=== PATIENT | male | born 1985 | race Caucasian/White ===

== ENCOUNTER 2016-12-23 16:24 | Emergency (ER) | payer OTHER ==
--- NOTE | 2016-12-23 18:01 | ED ---
General Adult HPI - General Chief complaint: Abdominal Pain Stated complaint: Poss Hernia Rupture Time Seen by Provider: 12/23/16 17:52 Source: patient, RN notes reviewed Mode of arrival: ambulatory Limitations: no limitations - History of Present Illness Initial comments: 31-year-old male presents to the emergency department with a chief complaint of pain in the right groin area. Patient has a history of an inguinal hernia to the right groin. Patient states that he noticed about the area and pain when he walks so he was concerned. Patient states that there has been no nausea vomiting fever or chills. Patient states that he just noted tenderness and swelling of the area. Patient states that he has no other complaints at this time. Patient states he does appear to be saw that it was yesterday. Patient denies any recent fever, chills, shortness of breath, chest pain, back pain, abdominal pain, nausea vomiting, numbness or tingling, dysuria or hematuria, constipation or diarrhea, headaches or visual changes, or any other current symptoms. - Related Data Previous Rx's Medication Instructions Recorded Amoxicillin/Potassium Clav 1 tab PO Q12HR #20 tab 12/23/16 [Augmentin 875-125 Tablet] Allergies Allergy/AdvReac Type Severity Reaction Status Date / Time No Known Allergies Allergy Verified 12/23/16 19:09 Review of Systems ROS Statement: Those systems with pertinent positive or pertinent negative responses have been documented in the HPI. ROS Other: All systems not noted in ROS Statement are negative. Past Medical History Past Medical History: No Reported History History of Any Multi-Drug Resistant Organisms: None Reported Past Surgical History: Hernia Repair, Orthopedic Surgery Additional Past Surgical History / Comment(s): RIGHT WRIST Past Anesthesia/Blood Transfusion Reactions: No Reported Reaction Past Psychological History: No Psychological Hx Reported Smoking Status: Current every day smoker Past Alcohol Use History: Occasional Past Drug Use History: None Reported General Exam Limitations: no limitations General appearance: alert, in no apparent distress ENT exam: Present: normal exam, mucous membranes moist Neck exam: Present: normal inspection. Absent: tenderness, meningismus, lymphadenopathy Respiratory exam: Present: normal lung sounds bilaterally. Absent: respiratory distress, wheezes, rales, rhonchi, stridor Cardiovascular Exam: Present: regular rate, normal rhythm, normal heart sounds. Absent: systolic murmur, diastolic murmur, rubs, gallop, clicks GI/Abdominal exam: Present: soft, normal bowel sounds. Absent: distended, tenderness, guarding, rebound, rigid exam: Present: circumcision, other (tenderness with mobile nodule right groin ). Absent: testicular tenderness, urethral discharge, scrotal swelling Course Vital Signs 12/23/16 16:31 Temperature 97.4 F L Pulse Rate 93 Respiratory 16 Rate Blood Pressure 119/68 O2 Sat by Pulse 98 Oximetry Medical Decision Making - Medical Decision Making 31-year-old male presents for pain and nodule to the right groin area with concern for hernia.this time patient's exam and ultrasound does show the patient does have a swollen lymph node on the right. This time the right leg shows no sign of infection. Patient has no sign of infection to the scrotal area either. This time we will start the patient on Augmentin for the swollen lymph node. We did discuss that if this does not completely resolve he needs to follow-up with his doctor for evaluation possibly a biopsy of the area. We did discuss return parameters outpatient family's questions. They state Sivakumar they're in agreement plan. They'll be discharged. - Radiology Data Radiology results: report reviewed, image reviewed Disposition Clinical Impression: Lymphadenopathy, inguinal Disposition: HOME SELF-CARE Condition: Stable Instructions: Lymphadenopathy (ED) Additional Instructions: Please use medication as discussed. Please follow up with family doctor if symptoms have not improved over the next two days. Please return to the emergency room if your symptoms increase or worsen or for any other concerns. Prescriptions: Amoxicillin/Potassium Clav [Augmentin 875-125 Tablet] 1 tab PO Q12HR #20 tab Referrals: Marlin Whitehead MD [STAFF PHYSICIAN] - 1-2 days Time of Disposition: 19:26
--- NOTE | 2016-12-23 18:39 | US ---
EXAMINATION TYPE: US groin extremity RT DATE OF EXAM: 12/23/2016 COMPARISON: NONE CLINICAL HISTORY: Pain. Right groin pain Multiple lymph nodes visualized in right groin area. Largest measuring 4.0 x 1.2 x 3.7 cm. IMPRESSION: Multiple right inguinal lymph nodes are demonstrated that measure up to 4 cm in length. No evidence of an abscess.
--- NOTE | 2016-12-23 18:41 | US ---
EXAMINATION TYPE: US scrotum with doppler. Grayscale and color Doppler Duplex imaging performed of t martha scrotum. DATE OF EXAM: 12/23/2016 COMPARISON: NONE CLINICAL HISTORY: Pain. Right groin pain EXAM MEASUREMENTS: TESTICLES: Right Testicle: 3.5 x 1.7 x 2.7 cm Left Testicle: 3.3 x 1.9 x 2.6 cm EPIDIDYMIS HEAD: Right Epididymis: 0.6 x 0.6 x 0.9 cm Left Epididymis: 0.7 x 0.9 x 1.0 cm Doppler performed to assess for testicular vascularity; good bilateral color flow and waveforms are s een. There is no evidence of testicular torsion. Presence of hydroceles: no Presence of varicoceles: no Bilateral normal color doppler flow. IMPRESSION: Normal exam. No evidence of testicular torsion or mass.
[2016-12-23 19:39] VITALS: BP 110/57; PULSE 81; RESP 17; TEMP 97.7
== END 2016-12-23 19:45 | disposition home or self-care (01) ==
LOC: EC 16:24
DX: R59.0 Localized enlarged lymph nodes (principal); F17.200 Nicotine dependence, unspecified, uncomplicated; Z87.19 Personal history of other diseases of the digestive system; Z98.890 Other specified postprocedural states
CPT/HCPCS: 76870; 93975; 99284

== ENCOUNTER 2017-06-19 08:24 | Emergency (ER) | payer OTHER ==
[2017-06-19 08:29] VITALS: BP 165/71; PULSE 78; RESP 18; TEMP 98.1
--- NOTE | 2017-06-19 08:43 | ED ---
General Adult HPI - General Chief complaint: Extremity Injury, Upper Stated complaint: RT WRIST PAIN Time Seen by Provider: 06/19/17 08:33 Source: patient, RN notes reviewed Mode of arrival: ambulatory Limitations: no limitations - History of Present Illness Initial comments: 31-year-old male presents for right wrist pain. He states he was at work and all of a sudden he just had a pain to his right wrist is now some swelling to the area. 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 He denies any other injury to it that he is aware of. He states it does hurt him on and off however chronically. He denies any weakness or numbness and tingling to the wrist. He denies any other symptoms at this time. Patient was concerned due to his continued pain in the small bump that he's noticed in the back of the wrist so he thought that he should be seen.Patient denies any recent fever, chills, shortness of breath, chest pain, back pain, abdominal pain, nausea vomiting, numbness or tingling, dysuria or hematuria, constipation or diarrhea, headaches or visual changes, or any other current symptoms. - Related Data Home Medications Medication Instructions Recorded Confirmed Ibuprofen [Motrin] 800 - 1,600 mg PO Q6H PRN 06/19/17 06/19/17 Previous Rx's Medication Instructions Recorded Ibuprofen [Motrin] 600 mg PO Q6HR PRN #20 tab 06/19/17 Allergies Allergy/AdvReac Type Severity Reaction Status Date / Time No Known Allergies Allergy Verified 06/19/17 08:59 Review of Systems ROS Statement: Those systems with pertinent positive or pertinent negative responses have been documented in the HPI. ROS Other: All systems not noted in ROS Statement are negative. Past Medical History Past Medical History: No Reported History History of Any Multi-Drug Resistant Organisms: None Reported Past Surgical History: Hernia Repair, Orthopedic Surgery Additional Past Surgical History / Comment(s): RIGHT WRIST Past Anesthesia/Blood Transfusion Reactions: No Reported Reaction Past Psychological History: No Psychological Hx Reported Smoking Status: Current every day smoker Past Alcohol Use History: Occasional Past Drug Use History: None Reported General Exam - General Exam Comments Initial Comments: General: The patient is awake and alert, in no distress, and does not appear acutely ill. Neck: The neck is supple, there is no tenderness or JVD. Cardiovascular: There is a regular rate and rhythm. No murmur, rub or gallop is appreciated. Respiratory: Lungs are clear to auscultation, respirations are non-labored, breath sounds are equal. No wheezes, stridor, rales, or rhonchi. Musculoskeletal: Sensation intact. 2+ pulses throughout the right upper extremity. Full range of motion of right elbow. Patient has pain with complete range of motion of right wrist. Tenderness to the medial aspect of the right wrist. No deformity. <2 capillary refill. Neurological: CN II-XII intact, There are no obvious motor or sensory deficits. Coordination appears grossly intact. Speech is normal. Skin: Skin is warm and dry and no rashes or lesions are noted. Psychiatric: Normal mood and affect. Limitations: no limitations Course Vital Signs 06/19/17 08:26 Temperature 98.1 F Pulse Rate 78 Respiratory 18 Rate Blood Pressure 165/71 O2 Sat by Pulse 99 Oximetry Medical Decision Making - Medical Decision Making 31-year-old male presents for right wrist pain. At this time x-rays reviewed that does show some soft tissue swelling to the right wrist. This time we discussed right wrist sprain. We discussed Motrin Tylenol and ice. We'll give her Motrin 600. We discussed return parameters and follow-up and all questions. Patient stated he understood and he is given this plan. He will be discharged. - Radiology Data Radiology results: report reviewed, image reviewed Disposition Clinical Impression: Right wrist sprain Disposition: HOME SELF-CARE Condition: Stable Instructions: Wrist Sprain (ED) Additional Instructions: Please use medication as discussed. Please follow up with family doctor if symptoms have not improved over the next two days. Please return to the emergency room if your symptoms increase or worsen or for any other concerns. Prescriptions: Ibuprofen [Motrin] 600 mg PO Q6HR PRN #20 tab PRN Reason: Pain Referrals: Blaine Licona MD [Medical Doctor] - 1-2 days Time of Disposition: 09:54
--- NOTE | 2017-06-19 09:47 | XR ---
EXAMINATION TYPE: XR wrist complete RT DATE OF EXAM: 06/19/2017 COMPARISON: Right hand 03/04/2011 HISTORY: Pain, history of scaphoid resection TECHNIQUE: 4 view right wrist FINDINGS: The distal scaphoid is been resected. Joint spaces are otherwise preserved. Acute fractures are not identified. Mild diffuse soft tissue swelling appears to be present. IMPRESSION: 1. Postsurgical changes at the scaphoid. 2. Mild diffuse soft tissue swelling. 3. Follow-up exams can be performed 7-10 days from acute trauma for continued pain.
== END 2017-06-19 10:06 | disposition home or self-care (01) ==
LOC: EC 08:24
DX: S63.501A Unspecified sprain of right wrist, initial encounter (principal); F17.200 Nicotine dependence, unspecified, uncomplicated; Z98.890 Other specified postprocedural states
CPT/HCPCS: 99283

== ENCOUNTER 2017-06-21 07:55 | Emergency (ER) | payer OTHER ==
[2017-06-21 08:00] VITALS: BP 143/77; PULSE 90; RESP 18; TEMP 98.1
--- NOTE | 2017-06-21 08:10 | ED ---
Upper Extremity HPI - General Chief Complaint: Extremity Injury, Upper Stated Complaint: Shoulder pain Time Seen by Provider: 06/21/17 08:01 Source: patient, RN notes reviewed, old records reviewed Mode of arrival: ambulatory Limitations: no limitations - History of Present Illness Initial Comments: This patient is a 31-year-old male presents or urgency department today chief complaint of right shoulder pain. Patient reports that yesterday he was at his son's [employer] practice, and was encouraging the kids to run harder play. Patient reports that he was running with the children, he slipped and fell and landed on his right shoulder. Patient reports that since then he has been having a difficult time with range of motion with the shoulder. He is right- handed. He is also seen a few days ago for right wrist pain and swelling. Patient states that he had x-rays on it and was told to wear her brace and follow-up with orthopedic. Patient reports that he has no pain with range of motion of the elbow. He states he can only lift the right shoulder to 90 flexion. Denies any numbness or tingling down the arm.Patient denies any recent fever, chills, shortness of breath, chest pain, back pain, abdominal pain , nausea vomiting, numbness or tingling, dysuria or hematuria, constipation or diarrhea, headaches or visual changes, or any other current symptoms - Related Data Home Medications Medication Instructions Recorded Confirmed Ibuprofen [Motrin] 800 - 1,600 mg PO Q6H PRN 06/19/17 06/19/17 Previous Rx's Medication Instructions Recorded Ibuprofen [Motrin] 600 mg PO Q6HR PRN #20 tab 06/19/17 Cyclobenzaprine [Flexeril] 10 mg PO TID #12 tab 06/21/17 Ibuprofen [Motrin] 600 mg PO Q6HR PRN #12 tab 06/21/17 Allergies Allergy/AdvReac Type Severity Reaction Status Date / Time No Known Allergies Allergy Verified 06/21/17 08:00 Review of Systems ROS Statement: Those systems with pertinent positive or pertinent negative responses have been documented in the HPI. ROS Other: All systems not noted in ROS Statement are negative. Past Medical History Past Medical History: No Reported History History of Any Multi-Drug Resistant Organisms: None Reported Past Surgical History: Hernia Repair, Orthopedic Surgery Additional Past Surgical History / Comment(s): RIGHT WRIST Past Anesthesia/Blood Transfusion Reactions: No Reported Reaction Past Psychological History: No Psychological Hx Reported Smoking Status: Current every day smoker Past Alcohol Use History: Occasional Past Drug Use History: None Reported General Exam - General Exam Comments Initial Comments: This patient is a well-appearing 31-year-old male. No acute distress. Limitations: no limitations General appearance: alert, in no apparent distress Head exam: Present: atraumatic, normocephalic, normal inspection Eye exam: Present: normal appearance, PERRL, EOMI. Absent: scleral icterus, conjunctival injection, periorbital swelling ENT exam: Present: normal exam, mucous membranes moist Neck exam: Present: normal inspection. Absent: tenderness, meningismus, lymphadenopathy Respiratory exam: Present: normal lung sounds bilaterally. Absent: respiratory distress, wheezes, rales, rhonchi, stridor Cardiovascular Exam: Present: regular rate, normal rhythm, normal heart sounds. Absent: systolic murmur, diastolic murmur, rubs, gallop, clicks Right Shoulder Exam: Present: normal inspection. Absent: full ROM (Patient is limited flexion and extension. Patient is only able to flex to 90.) Upper Arm exam: Present: normal inspection, full ROM Elbow exam: Present: normal inspection, full ROM Forearm Wrist exam: Present: normal inspection, full ROM Hand Wrist exam: Present: full ROM. Absent: normal inspection (Patient is some minor swelling noted to the wrist.), tenderness, swelling Neuro motor exam: Present: wrist extension intact, thumb opposition intact, thumb IP flexion intact, thumb adduction intact, fingers 2-5 abduction intact Vascular: Present: normal capillary refill Back exam: Present: normal inspection Neurological exam: Present: alert, oriented X3, CN II-XII intact Psychiatric exam: Present: normal affect, normal mood Course Vital Signs 06/21/17 07:59 Temperature 98.1 F Pulse Rate 90 Respiratory 18 Rate Blood Pressure 143/77 O2 Sat by Pulse 97 Oximetry Procedures - Orthopedic Splinting/Casting Injury #1 Side: right Upper Extremity Injury Location: shoulder Upper Extremity Immobilizer: sling/shoulder immobilizer Medical Decision Making - Medical Decision Making This patient is a 31-year-old male presents or urgency department today chief complaint of right shoulder pain. Patient reports that yesterday he was at his son's [employer] practice, and was encouraging the kids to run harder play. Patient reports that he was running with the children, he slipped and fell and landed on his right shoulder. Patient reports that since then he has been having a difficult time with range of motion with the shoulder. Patient is able to flex and abduct the shoulder to 90. He has no further range of motion of this at that time. At this time we will obtain x-rays. He has normal capillary refill and normal sensation. Patient's x-rays are negative for any acute fracture. At this time and discussed likely significant muscle strain, discussed concern for rotator cuff tear. At this time we'll put the patient a sling. Discussing needs to practice range of motion however, because he does not want to develop frozen shoulder syndrome. We'll discharge the patient with a temperature medication and muscle relaxer. Discussed following up with PCP and orthopedic. All questions were answered and return parameters were discussed. - Radiology Data Radiology results: report reviewed Is no acute fracture dislocation within the right shoulder. Some spurring of the before meals joint. Glenohumeral joint is maintained. Visualized ribs are intact and unremarkable. Disposition Clinical Impression: Injury of right rotator cuff, Strain of shoulder Disposition: HOME SELF-CARE Condition: Good Instructions: Rotator Cuff Injury (ED) Additional Instructions: Patient advised to use the sling however distal practice range of motion with the shoulder as he did not want to develop "first shoulder syndrome". Patient needs to take anti-inflammatory medicine, ice the shoulder. Follow-up with orthopedic if symptoms are continuing to persist or worsening within the next week. Prescriptions: Cyclobenzaprine [Flexeril] 10 mg PO TID #12 tab Ibuprofen [Motrin] 600 mg PO Q6HR PRN #12 tab PRN Reason: Pain Referrals: None,Stated [Primary Care Provider] - 1-2 days Raulito Hernandez MD [STAFF PHYSICIAN] - 1-2 days Time of Disposition: 08:28
--- NOTE | 2017-06-21 08:24 | XR ---
EXAMINATION TYPE: XR shoulder complete RT DATE OF EXAM: 06/21/2017 CLINICAL HISTORY: Fall injury with limited range of motion TECHNIQUE: Three views of the right shoulder are obtained. COMPARISON: None. FINDINGS: There is no acute fracture/dislocation evident in the right shoulder. There is some spurri ng at acromioclavicular joint. Glenohumeral joint is maintained. The visualized ribs are intact and u nremarkable. IMPRESSION: There is no acute fracture or dislocation in the right shoulder.
[2017-06-21] MEDS ORDERED: CYCLOBENZAPRINE 10MG STARTER 3 TAB BTL PO STA (08:29)
[2017-06-21] MEDS ORDERED: IBUPROFEN 600 MG STARTER PACK 4 TAB BTL PO STA (08:29)
== END 2017-06-21 08:37 | disposition home or self-care (01) ==
LOC: EC 07:55
DX: S46.011A Strain of muscle(s) and tendon(s) of the rotator cuff of right shoulder, initial encounter (principal); F17.200 Nicotine dependence, unspecified, uncomplicated; W01.0XXA Fall on same level from slipping, tripping and stumbling without subsequent striking against object, initial encounter; Y93.02 Activity, running
CPT/HCPCS: 99284

== ENCOUNTER 2020-11-03 16:57 | Emergency (ER) | payer OTHER ==
[2020-11-03 17:42] VITALS: BP 139/91; PULSE 77; RESP 18; TEMP 98.1
--- NOTE | 2020-11-03 19:02 | ED ---
General Adult HPI - General Chief complaint: Weakness Stated complaint: neuro issues Time Seen by Provider: 11/03/20 17:40 Source: patient Mode of arrival: wheelchair Limitations: physical limitation - History of Present Illness Initial comments: Patient eloped before he could be seen by myself for evaluation - Related Data Home Medications Medication Instructions Recorded Confirmed Ibuprofen [Motrin] 800 - 1,600 mg PO Q6H PRN 06/19/17 06/19/17 Previous Rx's Medication Instructions Recorded Ibuprofen [Motrin] 600 mg PO Q6HR PRN #20 tab 06/19/17 Cyclobenzaprine [Flexeril] 10 mg PO TID #12 tab 06/21/17 Ibuprofen [Motrin] 600 mg PO Q6HR PRN #12 tab 06/21/17 Allergies Allergy/AdvReac Type Severity Reaction Status Date / Time No Known Allergies Allergy Verified 06/21/17 08:00 Review of Systems ROS Statement: Those systems with pertinent positive or pertinent negative responses have been documented in the HPI. ROS Other: All systems not noted in ROS Statement are negative. Past Medical History Past Medical History: No Reported History History of Any Multi-Drug Resistant Organisms: None Reported Past Surgical History: Hernia Repair, Orthopedic Surgery Additional Past Surgical History / Comment(s): RIGHT WRIST Past Anesthesia/Blood Transfusion Reactions: No Reported Reaction Past Psychological History: No Psychological Hx Reported Smoking Status: Current every day smoker Past Alcohol Use History: Daily Past Drug Use History: None Reported General Exam Limitations: physical limitation Course Vital Signs 11/03/20 17:38 Temperature 98.1 F Pulse Rate 77 Respiratory 18 Rate Blood Pressure 139/91 O2 Sat by Pulse 97 Oximetry Disposition Clinical Impression: Weak Disposition: Left W/O Being Seen by Phys Referrals: None,Stated [Primary Care Provider] - 1-2 days
== END 2020-11-03 18:54 | disposition left against medical advice (07) ==
LOC: EC 16:57
DX: R53.1 Weakness (principal); F17.200 Nicotine dependence, unspecified, uncomplicated; Z79.1 Long term (current) use of non-steroidal anti-inflammatories (NSAID); Z79.899 Other long term (current) drug therapy
CPT/HCPCS: 99284

== ENCOUNTER 2021-02-01 15:43 | Emergency (ER) | payer OTHER ==
[2021-02-01 16:06] VITALS: BP 146/95; PULSE 74; RESP 18; TEMP 99.8
[2021-02-01] MEDS ORDERED: KETOROLAC 15 MG/ML 1 ML VIAL IM STA (16:21)
[2021-02-01 16:49] LABS: Appearance,Urine Cloudy (Clear); Bilirubin,Urine Negative (Negative); Blood,Urine Small (Negative); Color,Urine Yellow; Glucose,Urine (UA) Negative (Negative); Ketones,Urine Negative (Negative); Leukocyte Esterase,Urine Large (Negative); Mucus,Urine Rare /hpf; Nitrite,Urine Negative (Negative); Protein,Urine 1+ (Negative); RBC,Urine 16 /hpf (0-5); Specific Gravity,Urine 1.017 (1.001-1.035); Urobilinogen,Urine <2.0 mg/dL (<2.0); WBC,Urine >182 /hpf (0-5)
--- NOTE | 2021-02-01 16:50 | ED ---
General Adult HPI - General Chief complaint: Urogenital Stated complaint: Urogenital Time Seen by Provider: 02/01/21 16:09 Source: patient, RN notes reviewed, old records reviewed Mode of arrival: ambulatory Limitations: no limitations - History of Present Illness Initial comments: 35-year-old male with testicular pain which began today. He noticed pain and swelling in the right testicle. No abdominal pain. No fever. Patient is uncertain if he is coming contact with sexually transmitted diseases denies urethral discharge. He denies nausea vomiting. - Related Data Home Medications Medication Instructions Recorded Confirmed Ibuprofen [Motrin] 800 - 1,600 mg PO Q6H PRN 06/19/17 06/19/17 Previous Rx's Medication Instructions Recorded Ibuprofen [Motrin] 600 mg PO Q6HR PRN #20 tab 06/19/17 Cyclobenzaprine [Flexeril] 10 mg PO TID #12 tab 06/21/17 Ibuprofen [Motrin] 600 mg PO Q6HR PRN #12 tab 06/21/17 Doxycycline [Vibramycin] 100 mg PO BID 14 Days #28 cap 02/01/21 Ibuprofen [Motrin] 600 mg PO Q8HR PRN #24 tab 02/01/21 Allergies Allergy/AdvReac Type Severity Reaction Status Date / Time No Known Allergies Allergy Verified 02/01/21 16:06 Review of Systems ROS Statement: Those systems with pertinent positive or pertinent negative responses have been documented in the HPI. ROS Other: All systems not noted in ROS Statement are negative. Past Medical History Past Medical History: No Reported History History of Any Multi-Drug Resistant Organisms: None Reported Past Surgical History: Hernia Repair, Orthopedic Surgery Additional Past Surgical History / Comment(s): RIGHT WRIST Past Anesthesia/Blood Transfusion Reactions: No Reported Reaction Past Psychological History: No Psychological Hx Reported Smoking Status: Current every day smoker Past Alcohol Use History: Daily Past Drug Use History: None Reported General Exam Limitations: no limitations General appearance: alert, in no apparent distress Head exam: Present: atraumatic, normocephalic Eye exam: Present: normal appearance, PERRL ENT exam: Present: normal exam Neck exam: Present: normal inspection. Absent: tenderness, meningismus Respiratory exam: Present: normal lung sounds bilaterally. Absent: respiratory distress, wheezes Cardiovascular Exam: Present: regular rate, normal rhythm GI/Abdominal exam: Present: soft. Absent: distended, tenderness exam: Present: testicular tenderness, scrotal swelling Extremities exam: Present: normal inspection Back exam: Present: normal inspection, full ROM Neurological exam: Present: alert, oriented X3, CN II-XII intact. Absent: motor sensory deficit Psychiatric exam: Present: normal affect, normal mood Skin exam: Present: warm, dry, intact. Absent: cyanosis, diaphoretic Course Vital Signs 02/01/21 16:02 Temperature 99.8 F H Pulse Rate 74 Respiratory 18 Rate Blood Pressure 146/95 O2 Sat by Pulse 100 Oximetry Medical Decision Making - Medical Decision Making urinalysis is suggestive of inflammation, greater than 182 white cells without bacteria present. Culture pending. I did initiate ceftriaxone in the emergency department for epididymitis which is visualized on ultrasound. Additionally the patient will be covered with doxycycline. He will be given urology follow- up. - Lab Data Lab Results 02/01/21 Range/Units 16:17 Urine Color Yellow Urine Appearance Cloudy (Clear) Urine pH 6.0 (5.0-8.0) Ur Specific [place] 1.017 (1.001-1.035) Urine Protein 1+ H (Negative) Urine Glucose (UA) Negative (Negative) Urine Ketones Negative (Negative) Urine Blood Small H (Negative) Urine Nitrite Negative (Negative) Urine Bilirubin Negative (Negative) Urine Urobilinogen <2.0 (<2.0) mg/dL Ur Leukocyte Esterase Large H (Negative) Urine RBC 16 H (0-5) /hpf Urine WBC >182 H (0-5) /hpf Urine Mucus Rare H (None) /hpf Disposition Clinical Impression: Epididymitis Disposition: HOME SELF-CARE Condition: Good Instructions (If sedation given, give patient instructions): Urinary Tract Infection in Men (ED), Epididymitis (ED) Prescriptions: Ibuprofen [Motrin] 600 mg PO Q8HR PRN #24 tab PRN Reason: Pain Doxycycline [Vibramycin] 100 mg PO BID 14 Days #28 cap Is patient prescribed a controlled substance at d/c from ED?: No Referrals: None,Stated [Primary Care Provider] - 1-2 days Mychal Polanco MD [STAFF PHYSICIAN] - 1-2 days Time of Disposition: 17:41
[2021-02-01] MEDS ORDERED: cefTRIAXone 250 MG VIAL IM STA (17:06)
--- NOTE | 2021-02-01 17:16 | US ---
EXAMINATION TYPE: US scrotum with doppler. Grayscale and color Doppler Duplex imaging performed of brenden thomas scrotum. DATE OF EXAM: 02/01/2021 COMPARISON: Prior exam 12/23/2016 CLINICAL HISTORY: pain and swelling. EXAM MEASUREMENTS: TESTICLES: Right Testicle: 1.4 cm Left Testicle: 0.5 cm EPIDIDYMIS HEAD: Right Epididymis: 2.8 x 2.1 x 1.4 cm Left Epididymis: 3.6 x 2.1 x 2.6 cm Doppler performed to assess for testicular vascularity; bilateral color flow and waveforms are seen. Presence of hydroceles: There is a small hydrocele on the right. Testicular echotexture is homogenous and symmetric Presence of varicoceles: no Increased flow to right epididymis suggestive of epididymitis. Right epididymis appears prominently. IMPRESSION: Correlate for epididymitis.
== END 2021-02-01 18:03 | disposition home or self-care (01) ==
LOC: EC 15:43
DX: N45.1 Epididymitis (principal); F17.200 Nicotine dependence, unspecified, uncomplicated; Z79.1 Long term (current) use of non-steroidal anti-inflammatories (NSAID)
CPT/HCPCS: 81001; 87086; 93975; 76870; 99284; 96372 ×2; J0696; J1885; 96376

== ENCOUNTER 2023-03-13 12:13 | Emergency (ER) | payer SELFPAY ==
--- NOTE | 2023-03-13 12:46 | XR ---
3 views right hand 3 views right wrist. DATE: 03/13/2023. COMPARISON: None available. MEDICAL HISTORY: Pain on radial aspect of wrist. 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 Question of prior trauma or surgical changes. Cannot rule out prior necrosis. There is some mild degenerative changes seen at the first carpal metacarpal joint on this side. No additional acute osseous abnormalities are seen.
--- NOTE | 2023-03-13 13:16 | ED ---
General Adult HPI - General Chief complaint: Extremity Problem,Nontraumatic Stated complaint: swollen right hand discoloring of skin Time Seen by Provider: 03/13/23 13:03 Source: patient, RN notes reviewed, old records reviewed Mode of arrival: ambulatory Limitations: no limitations - History of Present Illness Initial comments: 37-year-old male presents for evaluation of right wrist pain. Patient had previous scaphoid resection and has intermittent swelling and pain from time to time. He is currently doing concrete work. He denies specific injury but states that the usual treatment of wrapping and elevating has been less effective. No fever. No warmth to the joint. - Related Data Home Medications Medication Instructions Recorded Confirmed Ibuprofen [Motrin] 800 - 1,600 mg PO Q6H PRN 06/19/17 06/19/17 Previous Rx's Medication Instructions Recorded Ibuprofen [Motrin] 600 mg PO Q6HR PRN #20 tab 06/19/17 Cyclobenzaprine [Flexeril] 10 mg PO TID #12 tab 06/21/17 Ibuprofen [Motrin] 600 mg PO Q6HR PRN #12 tab 06/21/17 Doxycycline [Vibramycin] 100 mg PO BID 14 Days #28 cap 02/01/21 Ibuprofen [Motrin] 600 mg PO Q8HR PRN #24 tab 02/01/21 Allergies Allergy/AdvReac Type Severity Reaction Status Date / Time No Known Allergies Allergy Verified 03/13/23 12:23 Review of Systems ROS Statement: Those systems with pertinent positive or pertinent negative responses have been documented in the HPI. ROS Other: All systems not noted in ROS Statement are negative. Past Medical History Past Medical History: No Reported History History of Any Multi-Drug Resistant Organisms: None Reported Past Surgical History: Hernia Repair, Orthopedic Surgery Additional Past Surgical History / Comment(s): RIGHT WRIST Past Anesthesia/Blood Transfusion Reactions: No Reported Reaction Past Psychological History: No Psychological Hx Reported Smoking Status: Current every day smoker Past Alcohol Use History: Daily Past Drug Use History: None Reported General Exam Limitations: no limitations General appearance: alert, in no apparent distress Head exam: Present: atraumatic, normocephalic Eye exam: Present: normal appearance, PERRL ENT exam: Present: normal exam Neck exam: Present: normal inspection. Absent: tenderness Respiratory exam: Present: normal lung sounds bilaterally. Absent: respiratory distress, wheezes Cardiovascular Exam: Present: regular rate, normal rhythm GI/Abdominal exam: Present: soft. Absent: distended, tenderness Extremities exam: Present: joint swelling (Very mild soft tissue swelling at the distal radius without erythema, no warmth, 2+ radial pulse, normal cap refill and all digits. The reported pale extremity is secondary to concrete dust.) Neurological exam: Present: alert, oriented X3 Psychiatric exam: Present: normal affect, normal mood Skin exam: Present: warm, dry, intact, normal color Course Vital Signs 03/13/23 12:19 Temperature 97.9 F Pulse Rate 109 H Respiratory 17 Rate Blood Pressure 132/87 O2 Sat by Pulse 97 Oximetry Medical Decision Making - Medical Decision Making Was pt. sent in by a medical professional or institution (, PA, [employer], urgent care, hospital, or [facility]...) When possible be specific @ -No Did you speak to anyone other than the patient for history (EMS, parent, family, police, friend...)? What history was obtained from this source @ -No Did you review nursing and triage notes (agree or disagree)? Why? @ -I reviewed and agree with nursing and triage notes Were old charts reviewed (outside hosp., previous admission, EMS record, old EKG, old radiological studies, urgent care reports/EKG's, [facility] records)? Report findings @ -No old charts were reviewed Differential Diagnosis (chest pain, altered mental status, abdominal pain women, abdominal pain men, vaginal bleeding, weakness, fever, dyspnea, syncope, headache, dizziness, GI bleed, back pain, seizure, CVA, palpatations, mental health, musculoskeletal)? @ -Differential Musculoskeletal Muscular strain, contusion, ligament sprain, fracture, arthritis, septic arthritis, bursitis, cellulitis, muscle spasm, nerve compression, DVT, arterial occlusion, herpes zoster, electrolyte abnormality, tumor.... This is not meant to be in all inclusive list EKG interpreted by me (3pts min.). @ -As above X-rays interpreted by me (1pt min.). @Trace of the right wrist, right hand showing previous surgical changes at the scaphoid without acute fracture or dislocation. CT interpreted by me (1pt min.). @ -None done U/S interpreted by me (1pt. min.). @ -None done What testing was considered but not performed or refused? (CT, X-rays, U/S, labs)? Why? @ -None What meds were considered but not given or refused? Why? @ -None Did you discuss the management of the patient with other professionals (professionals i.e. , PA, [employer], lab, RT, psych nurse, addiction social worker, solar electric installer, teacher, chairman president and chief executive officer, case preparer and liner)? Give summary @ -No Was smoking cessation discussed for >3mins.? @ -No Was critical care preformed (if so, how long)? @ -No Were there social determinants of health that impacted care today? How? (Homelessness, low income, unemployed, alcoholism, drug addiction, transportation, low edu. Level, literacy, decrease access to med. care, retirement, rehab)? @ -No Was there de-escalation of care discussed even if they declined (Discuss DNR or withdrawal of care, Hospice)? DNR status @ -No What co-morbidities impacted this encounter? (DM, HTN, Smoking, COPD, CAD, Cancer, CVA, ARF, Chemo, Hep., AIDS, mental health diagnosis, sleep apnea, morbid obesity)? @ -None Was patient admitted / discharged? Hospital course, mention meds given and route, prescriptions, significant lab abnormalities, going to OR and other pertinent info. @ -[Patient will continue to elevate, ice his wrist. Andrey wrap applied in the emergency department. Patient is stable for discharge at this time. Undiagnosed new problem with uncertain prognosis? @ -No Drug Therapy requiring intensive monitoring for toxicity (Heparin, Nitro, Insulin, Cardizem)? @ -No Were any procedures done? @ -No Diagnosis/symptom? @Osteoarthritis right wrist Acute, or Chronic, or Acute on Chronic? @Acute Uncomplicated (without systemic symptoms) or Complicated (systemic symptoms)? @ -default] Side effects of treatment? @ -[No] Exacerbation, Progression, or Severe Exacerbation? @ -[No] Poses a threat to life or bodily function? How? (Chest pain, [place], [place], pneumonia, PE, COPD, DKA, ARF, appy, cholecystitis, CVA, Diverticulitis, Homicidal, Suicidal, threat to staff... and all critical care pts) @ -[No] Disposition Clinical Impression: Wrist arthritis Disposition: HOME SELF-CARE Condition: Good Instructions (If sedation given, give patient instructions): Swollen Joint (ED), Osteoarthritis (ED) Is patient prescribed a controlled substance at d/c from ED?: No Referrals: None,Stated [Primary Care Provider] - 1-2 days Yariel Landeros DO [Doctor of Osteopathic Medicine] - 1-2 days Time of Disposition: 13:15
[2023-03-13 13:48] VITALS: BP 138/78; PULSE 78; RESP 16; TEMP 98.2
== END 2023-03-13 13:40 | disposition home or self-care (01) ==
LOC: EC 12:13
DX: M19.031 Primary osteoarthritis, right wrist (principal); F17.200 Nicotine dependence, unspecified, uncomplicated
CPT/HCPCS: 99283